=== PATIENT | female | born 1975 | race American Indian/Alaskan Native ===

== ENCOUNTER 2019-01-27 09:50 | Emergency (ER) | payer OTHER ==
[2019-01-27 10:13] VITALS: BP 181/103
[2019-01-27] MEDS ORDERED: CLEOCIN IM ONE (11:44)
[2019-01-27] MEDS ORDERED: IBUPROFEN PO ONE (11:45)
--- NOTE | 2019-01-27 11:49 | Emergency Department Report ---
ED ENT HPI - General Chief complaint: Dental/Oral Stated complaint: TOOTHACHE/MOUTH PAIN Time Seen by Provider: 01/27/19 10:56 Source: patient Mode of arrival: Wheelchair Limitations: No Limitations - History of Present Illness Initial comments: This is a 43-year-old female nontoxic, well nourished in appearance, no acute signs of distress presents to the ED with c/o of left upper toothache 3 weeks. Patient denies following up with a dentist. Patient stated that pain radiates from his job to his left side of head. Patient otherwise denies any head trauma. Patient describes toothache as aching level of 8 out of 10. Patient stated has some facial swelling. Patient denies any numbness, tingling, fever, chills, headache, stiff neck, abdominal pain, chest pain, shortness of breath. Patient denies any drug allergies or significant past medical history. MD complaint: tooth pain -: week(s) Location: tooth # 1 - pain here Severity: mild Severity scale (0 -10): 8 Quality: aching Consistency: constant Improves with: none Worsens with: none Associated Symptoms: gum swelling, toothache. denies: fever, cough, pain with swallowing, sore throat, tinnitus, hearing loss, discharge from ear, rhinorrhea - Related Data Previous Rx's Medication Instructions Recorded Last Taken Type Desmopressin Acetate [Stimate] 150 mcg NS BID #6 dose 04/21/13 Unknown Rx HYDROcodone/APAP 5-325 [[place] 1 each PO Q6HR PRN #20 tablet 04/21/13 Unknown Rx 5/325 mg] Lisinopril [Zestril TAB] 10 mg PO QDAY #30 tablet 04/22/13 Unknown Rx Acetaminophen/Codeine [Tylenol 1 tab PO Q6H PRN #12 tab 01/27/19 Unknown Rx /Codeine # 3 tab] Chlorhexidine Mouthwash [Peridex] 15 ml MM BID #1 bottle 01/27/19 Unknown Rx Clindamycin [Clindamycin CAP] 300 mg PO Q8H #21 cap 01/27/19 Unknown Rx Allergies Allergy/AdvReac Type Severity Reaction Status Date / Time latex Allergy Rash Verified 01/27/19 10:10 ED Dental HPI - General Chief complaint: Dental/Oral Stated complaint: TOOTHACHE/MOUTH PAIN Time Seen by Provider: 01/27/19 10:56 Source: patient Mode of arrival: Wheelchair Limitations: No Limitations - Related Data Previous Rx's Medication Instructions Recorded Last Taken Type Desmopressin Acetate [Stimate] 150 mcg NS BID #6 dose 04/21/13 Unknown Rx HYDROcodone/APAP 5-325 [[place] 1 each PO Q6HR PRN #20 tablet 04/21/13 Unknown Rx 5/325 mg] Lisinopril [Zestril TAB] 10 mg PO QDAY #30 tablet 04/22/13 Unknown Rx Acetaminophen/Codeine [Tylenol 1 tab PO Q6H PRN #12 tab 01/27/19 Unknown Rx /Codeine # 3 tab] Chlorhexidine Mouthwash [Peridex] 15 ml MM BID #1 bottle 01/27/19 Unknown Rx Clindamycin [Clindamycin CAP] 300 mg PO Q8H #21 cap 01/27/19 Unknown Rx Allergies Allergy/AdvReac Type Severity Reaction Status Date / Time latex Allergy Rash Verified 01/27/19 10:10 ED Review of Systems ROS: Stated complaint: TOOTHACHE/MOUTH PAIN Other details as noted in HPI Constitutional: denies: chills, fever Eyes: denies: eye pain, eye discharge, vision change ENT: dental pain. denies: ear pain, throat pain Respiratory: denies: cough, shortness of breath, wheezing Cardiovascular: denies: chest pain, palpitations Endocrine: no symptoms reported Gastrointestinal: denies: abdominal pain, nausea, diarrhea Genitourinary: denies: urgency, dysuria, discharge Musculoskeletal: denies: back pain, joint swelling, arthralgia Skin: denies: rash, lesions Neurological: denies: headache, weakness, paresthesias Psychiatric: denies: anxiety, depression Hematological/Lymphatic: denies: easy bleeding, easy bruising ED Past Medical Hx - Past Medical History Previous Medical History?: Yes Hx Hypertension: Yes Additional medical history: [place], hypertension, depression, insomnia - Surgical History Additional Surgical History: x4, myomectomy, hysterectomy - Social History Smoking Status: Current Every Day Smoker Substance Use Type: Alcohol (beer occasionally denies drug use) - Medications Home Medications: Home Medications Medication Instructions Recorded Confirmed Last Taken Type Desmopressin Acetate [Stimate] 150 mcg NS BID #6 dose 04/21/13 Unknown Rx HYDROcodone/APAP 5-325 [[place] 1 each PO Q6HR PRN #20 tablet 04/21/13 Unknown Rx 5/325 mg] Lisinopril [Zestril TAB] 10 mg PO QDAY #30 tablet 04/22/13 Unknown Rx Acetaminophen/Codeine [Tylenol 1 tab PO Q6H PRN #12 tab 01/27/19 Unknown Rx /Codeine # 3 tab] Chlorhexidine Mouthwash [Peridex] 15 ml MM BID #1 bottle 01/27/19 Unknown Rx Clindamycin [Clindamycin CAP] 300 mg PO Q8H #21 cap 01/27/19 Unknown Rx ED Physical Exam - General Limitations: No Limitations General appearance: alert, in no apparent distress - Head Head exam: Present: atraumatic, normocephalic - Expanded ENT Exam Expanded Ear exam: Present: normal external inspection Mouth exam: Present: normal external inspection. Absent: drooling, trismus, muffled voice Teeth exam: Present: dental caries, fractured tooth #, dental tenderness #, gingival enlargement, other (slight facial swelling. no induration or flutance ntoed. no abscess.) Throat exam: Positive: normal inspection, other (uvula midline.). Negative: tonsillar erythema, tonsillomegaly, tonsillar exudate, R peritonsillar mass, L peritonsillar mass - Neck Neck exam: Present: normal inspection, full ROM. Absent: tenderness, meningismus, lymphadenopathy - Extremities Exam Extremities exam: Present: normal inspection, full ROM - Back Exam Back exam: Present: normal inspection, full ROM - Neurological Exam Neurological exam: Present: alert, oriented X3 - Psychiatric Psychiatric exam: Present: normal affect, normal mood - Skin Skin exam: Present: warm, dry, intact, normal color. Absent: rash ED Course Vital Signs 01/27/19 10:12 Temperature 99.1 F Pulse Rate 116 H Respiratory 18 Rate Blood Pressure 181/103 [Right] O2 Sat by Pulse 98 Oximetry - Reevaluation(s) Reevaluation #1: 01/27/19 11:49 Patient is speaking in full sentences with no signs of distress noted. ED Medical Decision Making - Medical Decision Making This is a 43-year-old female that presents with gingivitis and dental caries. Patient is stable and was examined by me. There is slight swelling to the left mandible. There is no indurtaion or flutnace noted. I did give patient clindamycin 600 mg IM in the ED and patient is discharged with clindamycin. He had strict instructions to follow-up with oral maxillary surgeon in 24 hours or if symptoms would worsen to return to emergency room as was possible. Patient is discharged with Tylenol 3, Peridex and Clinda. Patient was instructed not to operate any machinery when taking Tylenol 3 due to drowsiness. At time of discharge, the patient does not seem toxic or ill in appearance. No acute signs of distress noted. Patient agrees to discharge treatment plan of care. No further questions noted by the patient. Critical care attestation.: If time is entered above; I have spent that time in minutes in the direct care of this critically ill patient, excluding procedure time. ED Disposition Clinical Impression: Dental caries, Gingivitis Disposition: DC- TO HOME OR SELFCARE Is pt being admited?: No Does the pt Need Aspirin: No Condition: Stable Instructions: Dental Caries (ED), Gingivitis (ED), Acetaminophen/Codeine (By mouth) Additional Instructions: Follow-up with a oral surgeon in 24 hours or if symptoms worsen and continue return to emergency room as soon as possible. Do not operate any machinery while taking Tylenol with codeine as this may cause drowsiness. [facility] director of special education and Dental Implants Address: [address], [place] [address] Hours: Monday Closed Monday 8AM-1PM, 2-5PM Monday 8AM-1PM, 2-5PM Monday 8AM-1PM, 2-5PM 8AM-1PM, 2-5PM Monday 7AM-2PM Monday Closed Prescriptions: Clindamycin [Clindamycin CAP] 300 mg PO Q8H #21 cap Chlorhexidine Mouthwash [Peridex] 15 ml MM BID #1 bottle Acetaminophen/Codeine [Tylenol /Codeine # 3 tab] 1 tab PO Q6H PRN #12 tab PRN Reason: Pain , Severe (7-10) Referrals: DENILSON HERMAN MD [Primary Care Provider] - 3-5 Days PRIMARY [facility] [Referring] - 3-5 Days EDWIN FERMIN MD [Staff Physician] - 3-5 Days [facility] [Outside] - 3-5 Days Forms: Work/School Release Form(ED)
== END 2019-01-27 12:14 | disposition home or self-care (01) ==
LOC: ED 09:50
DX: K02.9 Dental caries, unspecified (principal); K05.10 Chronic gingivitis, plaque induced; I10 Essential (primary) hypertension; G47.00 Insomnia, unspecified; F17.200 Nicotine dependence, unspecified, uncomplicated; Z90.710 Acquired absence of both cervix and uterus; Z91.040 Latex allergy status; Z79.899 Other long term (current) drug therapy; Z98.890 Other specified postprocedural states
CPT/HCPCS: 96372